=== PATIENT | female | born 1985 | race Caucasian/White ===

== ENCOUNTER → 2017-08-09 09:36 | Outpatient (CLI) | payer OTHER, SELFPAY ==
--- NOTE | 2017-08-09 09:45 | RAD_ITS ---
STUDY: AIR-CONTRAST UPPER CHEST SERIES AND SMALL BOWEL FOLLOW-THROUGH EXAMINATION. REASON FOR EXAM: Female, 31 years old. Post prandial abdominal pain. History of prior H. pylori. FLUOROSCOPY TIME (if supplied): (1:30) minutes/seconds TECHNIQUE: The patient ingested barium. Multiple images of the esophagus, stomach and duodenum were obtained. A small bowel follow-through examination was done performed. COMPARISON: None. FINDINGS: The esophagus is unremarkable. There is no evidence of esophageal obstruction. No mass lesion is seen. There is no evidence of gastroesophageal reflux. The stomach and duodenum are unremarkable. There is no evidence of ulceration. No mass lesion is seen. A small bowel examination was obtained. There is no evidence of intrinsic or extrinsic small bowel disease. The terminal ileum is unremarkable. RAD/Upper GI/w Small Bowel IMPRESSION: Unremarkable air contrast upper GI series and small bowel follow-through examination. Electronically Signed: Jozef Driver MD at 14:46 EST Tel [phone], Service support ,
== END ==
PROVIDERS: Family Provider Student in an Organized Health Care Education/Training Program; PCP Student in an Organized Health Care Education/Training Program; Visit Provider Student in an Organized Health Care Education/Training Program
DX: A04.8 Other specified bacterial intestinal infections (principal); F50.9 Eating disorder, unspecified; R10.13 Epigastric pain; R10.31 Right lower quadrant pain
CPT/HCPCS: 74249

== ENCOUNTER → 2017-09-18 10:40 | Outpatient (CLI) | payer OTHER, SELFPAY ==
[2017-09-18 12:50] LABS: CRP < 2.90 mg/L (0.0-3.0)
[2017-09-19 16:09] LABS: Endomysial Antibody IgA Negative (Negative)
[2017-09-20 11:28] LABS: Immunoglobulin A 176 mg/dL (87-352); t-Transglutaminase IgA <2 U/mL (0-3)
== END ==
PROVIDERS: Family Provider Student in an Organized Health Care Education/Training Program; PCP Student in an Organized Health Care Education/Training Program; Visit Provider Internal Medicine Gastroenterology
DX: R10.9 Unspecified abdominal pain (principal)
CPT/HCPCS: 36415; 82784; 83516; 86140; 86255

== ENCOUNTER → 2018-06-25 10:26 | Outpatient (CLI) | payer OTHER, SELFPAY ==
--- NOTE | 2018-06-25 10:29 | NM_ITS ---
CLINICAL: 32-year-old female with reported history of abdominal pain and bloating, nausea. SEMI-SOLID PHASE 99m Tc SULFUR COLLOID GASTRIC EMPTYING STUDY COMPARISON: None available FINDINGS: The patient was administered 1.1 mCi of 99m Tc sulfur colloid mixed with oatmeal and consumed per os. Image acquisitions were obtained in the anterior-posterior projections for a total of 60 minutes. There is prompt visualization of the stomach. There is no gastroesophageal reflux identified. The T1/2 linear fit was calculated to be 47.88 minutes, (Normal: 12-56 minutes). NM/Gastric Emptying Study IMPRESSION: 1. NORMAL 99m Tc sulfur colloid semi-solid phase (oatmeal) gastric emptying imaging examination. A. There is normal and preserved semi-solid phase gastric emptying compared to normal controls. (Mary et al, J Nucl Med Tech 38: 186, 2010). Electronically Signed: Diego Shepherd DO at 10:05 EST Tel , Service support ,
--- OUTSIDE RECORDS SUMMARY | 2018-08-30 05:06 | XMS RPT_ITS ---
:1985 Author Organization OHIP Care Team Providers Name Role Phone BEN URBINA Admitting Unavailable BEN URBINA Attending Unavailable BEN URBINA Referring Unavailable MANZANO, PELON Gee Referring Unavailable DIEGO WAITE Attending Unavailable MANZANO, PELON L Referring Unavailable MANZANO, PELON Gee Attending Unavailable MANZANO, PELON L Referring Unavailable MANZANO, PELON L Referring Unavailable MANZANO, PELON L Referring Unavailable ELLA RICO (ONION TIER) Referring Unavailable MANZANO, PELON L Attending Unavailable MANZANO, PELON L Referring Unavailable BEN URBINA Attending Unavailable Manzano, Pelon Attending Unavailable Manzano, Pelon Referring Unavailable Manzano, Pelon Primary Care Unavailable Manzano, Pelon Attending Unavailable Manzano, Pelon Primary Care Unavailable Mp Westbrook Attending Unavailable Manzano, Pelon Primary Care Unavailable PROBLEMS PROBLEMS DATE TYPE CONDITION / CODE ATTENDING STATUS SOURCE 06/18/2018 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 intolerance, [place] unspecified / Repository E73.9(ICD-10) 10/24/2017 Active Other fecal NA Active [facility] abnormalities / [place] R19.5(ICD-10) Repository 08/29/2017 Unknown A04.8 - Other Manzano, Active Bharati specified bacterial [facility] infections / Repository A04.8(ICD-10) 06/21/2017 Active Epigastric pain / NA Active [facility] R10.13(ICD-10) [place] Repository 06/21/2017 Active Other specified NA Active [facility] bacterial [place] intestinal Repository infections / A04.8(ICD-10) 08/02/2017 Active Right lower NA Active [facility] quadrant pain / [place] R10.31(ICD-10) Repository 08/02/2017 Active Nausea / NA Active [facility] R11.0(ICD-10) [place] Repository 08/02/2017 Active Eating disorder, NA Active [facility] unspecified / [place] F50.9(ICD-10) Repository 08/02/2017 Active Unknown / NA Active [facility] UNK(Unknown) [place] Repository 07/11/2017 Active Right upper NA Active [facility] quadrant pain / [place] R10.11(ICD-10) Repository PROCEDURES PROCEDURES No Procedure Records FoundRESULTS RESULTS PROGRESS Observed: 06/27/2018 Status: COMPLETED Source: [place] 10:10 AM [facility] HNO ID: [id number] Author: Ben Urbina Service: (none) Author Type: Physician Type: Progress Notes Filed: 06/27/2018 10:16 AM Note Text: CC: Over one year of dyspepsia, bloating and intermittent pain HPI: Nabil Ceron is a 32 year old female. The patient remembers that she became ill on May 26, 2017. Her initial illness was described as extreme nausea but occurred quite abruptly. Since that time the patient has been troubled by dyspepsia, bloating. Abdominal gurgling and occasional pain. She was discovered to have H. pylori which was treated but did not result in improvement in the long-term. She was tried on pantoprazole without much effect . She was tested for celiac disease and the markers were negative. She is not under any specific stresses at the moment. She has 2 small children. 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 The patient drinks one cup of coffee per day, does not smoke cigarettes and does not drink alcohol. Her weight is stable PAST MEDICAL HISTORY Diagnosis Date - NEGATIVE MEDICAL HISTORY PAST SURGICAL HISTORY Procedure Laterality Date - BUNIONECTOMY, LAPIDUS-TYPE 02/16/03 bilateral - COLONOSCOPY 10/01/2017 w biopsies, Dr. Westbrook; bx neg for microscopic colitis - EGD 07/08/2017 SOCIAL HX: Social History Substance Use Topics - Smoking status: Never Smoker - Smokeless tobacco: Never Used - Alcohol use No FAMILY HISTORY Problem Relation Age of Onset - Hypertension Maternal Grandmother - Hypertension Maternal Grandfather - Cancer Maternal Grandfather prostate,lung,laryngeal - Hypertension Paternal Grandfather - Cancer Maternal Aunt 66 kidney - Cancer Maternal Uncle prostate ALLERGIES: ALLERGIES No Known Allergies MEDICATIONS: OTC NUTRITIONAL SUPPLEMENT dicyclomine (BENTYL) 20 mg tablet Take 1 tablet by mouth three times daily before meals. pantoprazole DR (PROTONIX) 40 mg tablet Take 1 tablet by mouth twice daily. ROS: All systems reviewed and negative except as above noted. PHYSICAL EXAM: VITALS: BP 130/81 Pulse 50 Wt 130 lb 3.2 oz (59.1kg) LMP 06/02/2018 General Appearance: Well appearing, alert, in no acute distress, well-hydrated, well nourished.. Skin: Skin color, texture, turgor normal, no suspicious rashes or lesions. Lungs: Lungs clear to auscultation. No wheezing, rhonchi, rales. Heart: RRR without murmur, gallop, or rubs. No ectopy. Abdomen: Normal abdominal exam, Abdomen soft, non-tender. Bowel sounds normal. No masses, organomegaly. IMPRESSION: I think that this illness began as either of viral gastroenteritis or possibly food poisoning. I say this because of the abrupt onset and the fact that she can mention the exact date of May 26 as its starting point. I think that what happened is that her smooth muscle of her upper GI tract became hypersensitized and this is leading to her symptoms. The symptoms are caused by irregular forceful and frequent contractions of her upper GI tract. This situation is relatively common in my experience. Eventually a person symptoms usually subside but the period for her smooth muscle to return to normal and very variable. In rare cases it can take up to many years. I find that the best treatment for this is antispasmodics. PLAN: Dicyclomine 20 mg by mouth 3 times a day before meals If she feels better then after 3 months that would make attempts to taper the medicine and off. When that happens to results may occur- she may continue to fine or symptoms recurred in which case she needs to restart the medication. This note was partially generated using [employer] voice recognition system, and there may be some incorrect words, spellings, and punctuation that were not noted in checking the note before saving. Ben Urbina MD CNOV Observed: 06/27/2018 Status: COMPLETED Source: [place] 9:10 AM [facility] REPOSITORY Office Visit (GASTTW) NABIL CERON ([id number]) 1985 F Date Time Provider Department 06/27/18 9:10 AM BEN URBINA During your visit today, we recorded the following information about you: Pulse Blood pressure Weight 50/minute 130/81 59.1 kg Ben Urbina MD 06/27/2018 10:16 AM Signed CC: Over one year of dyspepsia, bloating and intermittent pain HPI: Nabil Ceron is a 32 year old female. The patient remembers that she became ill on May 26, 2017. Her initial illness was described as extreme nausea but occurred quite abruptly. Since that time the patient has been troubled by dyspepsia, bloating. Abdominal gurgling and occasional pain. She was discovered to have H. pylori which was treated but did not result in improvement in the long-term. She was tried on pantoprazole without much effect . She was tested for celiac disease and the markers were negative. She is not under any specific stresses at the moment. She has 2 small children. 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 The patient drinks one cup of coffee per day, does not smoke cigarettes and does not drink alcohol. Her weight is stable PAST MEDICAL HISTORY Diagnosis Date - NEGATIVE MEDICAL HISTORY PAST SURGICAL HISTORY Procedure Laterality Date - BUNIONECTOMY, LAPIDUS-TYPE 02/16/03 bilateral - COLONOSCOPY 10/01/2017 w biopsies, Dr. Westbrook; bx neg for microscopic colitis - EGD 07/08/2017 SOCIAL HX: Social History Substance Use Topics - Smoking status: Never Smoker - Smokeless tobacco: Never Used - Alcohol use No FAMILY HISTORY Problem Relation Age of Onset - Hypertension Maternal Grandmother - Hypertension Maternal Grandfather - Cancer Maternal Grandfather prostate,lung,laryngeal - Hypertension Paternal Grandfather - Cancer Maternal Aunt 66 kidney - Cancer Maternal Uncle prostate ALLERGIES: ALLERGIES No Known Allergies MEDICATIONS: OTC NUTRITIONAL SUPPLEMENT dicyclomine (BENTYL) 20 mg tablet Take 1 tablet by mouth three times daily before meals. pantoprazole DR (PROTONIX) 40 mg tablet Take 1 tablet by mouth twice daily. ROS: All systems reviewed and negative except as above noted. PHYSICAL EXAM: VITALS: BP 130/81 Pulse 50 Wt 130 lb 3.2 oz (59.1kg) LMP 06/02/2018 General Appearance: Well appearing, alert, in no acute distress, well-hydrated, well nourished.. Skin: Skin color, texture, turgor normal, no suspicious rashes or lesions. Lungs: Lungs clear to auscultation. No wheezing, rhonchi, rales. Heart: RRR without murmur, gallop, or rubs. No ectopy. Abdomen: Normal abdominal exam, Abdomen soft, non-tender. Bowel sounds normal. No masses, organomegaly. IMPRESSION: I think that this illness began as either of viral gastroenteritis or possibly food poisoning. I say this because of the abrupt onset and the fact that she can mention the exact date of May 26 as its starting point. I think that what happened is that her smooth muscle of her upper GI tract became hypersensitized and this is leading to her symptoms. The symptoms are caused by irregular forceful and frequent contractions of her upper GI tract. This situation is relatively common in my experience. Eventually a person symptoms usually subside but the period for her smooth muscle to return to normal and very variable. In rare cases it can take up to many years. I find that the best treatment for this is antispasmodics. PLAN: Dicyclomine 20 mg by mouth 3 times a day before meals If she feels better then after 3 months that would make attempts to taper the medicine and off. When that happens to results may occur- she may continue to fine or symptoms recurred in which case she needs to restart the medication. This note was partially generated using [employer] voice recognition system, and there may be some incorrect words, spellings, and punctuation that were not noted in checking the note before saving. Ben Urbina MD Referring Provider: SELF [200] Allergies As of Date: 06/27/2018 (No Known Allergies) Date Reviewed: 06/27/2018 Reviewed by: Fam Salmon - Fully Assessed Reason for Visit: Consult [502] Cmt: bloating Abdominal Pain [1] Cmt: loose stool Primary Visit Diagnosis:Pylorospasm [K31.3] Order(s):dicyclomine (BENTYL) 20 mg tabletTake 1 tablet by mouth three times daily before meals.Disp: 90 tabletRfl: 3 Prescriptions as of 06/27/2018 Sig: OTC NUTRITIONAL SUPPLEMENT DICYCLOMINE 20 MG TABLET Take 1 tablet by mouth three * PANTOPRAZOLE 40 MG TABLET,DEL* Take 1 tablet by mouth twice * Medication notes this encounter OTC NUTRITIONAL SUPPLEMENT >> FAM SALMON MA 06/27/2018 9:20 AM >> FAM SALMON Jun 27, 2018 9:20 AM motilprol Problem List As Of Date 06/27/2018 Noted Resolved Pain in joint, shoulder region [M25.519] INVALID FOR*01/28/2017 More... Knee pain [M25.569] INVALID FOR*01/28/2017 More... Hip flexor tendinitis [M76.899] INVALID FOR* H. pylori infection [A04.8] INVALID FOR* Epigastric pain [R10.13] INVALID FOR* Thyromegaly [E01.0] INVALID FOR* Abdominal distension [R14.0] INVALID FOR* Bloating [R14.0] INVALID FOR* Generalized abdominal pain [R10.84] INVALID FOR* Nausea [R11.0] INVALID FOR* Early satiety [R68.81] INVALID FOR* Routine physical examination [Z00.00] INVALID FOR* Belching [R14.2] INVALID FOR* Prescriptions ordered this encounter Disp Refills Start End DICYCLOMINE 20 MG TABLET 90 t* 3 06/27/2018 Route: ORAL Sig: Take 1 tablet by mouth three times daily before meals. Encounter Status:Closed by BEN URBINA MD on 06/27/18 GASTRIC EMPTYING Observed: 06/25/2018 Status: F Source: [place] [facility] 10:30 AM [facility] REPOSITORY [facility] Imaging Services [address] [place] [address] Gastric Emptying Study MR#: [id number] Acct: [id number] Name: NABIL CERON Rep #: [id number] : 1985 F 32 From: Diego Shepherd DO PCP: Pelon Hernandez DO Status: REG CLI Study: Gastric Emptying Study Date of Exam: 06/25/18 Exam# [id number] Ordering Dr: Pelon Manzano DO CLINICAL: 32-year-old female with reported history of abdominal pain and bloating, nausea. SEMI-SOLID PHASE 99m Tc SULFUR COLLOID GASTRIC EMPTYING STUDY COMPARISON: None available FINDINGS: The patient was administered 1.1 mCi of 99m Tc sulfur colloid mixed with oatmeal and consumed per os. Image acquisitions were obtained in the anterior-posterior projections for a total of 60 minutes. There is prompt visualization of the stomach. There is no gastroesophageal reflux identified. The T1/2 linear fit was calculated to be 47.88 minutes, (Normal: 12-56 minutes). NM/Gastric Emptying Study IMPRESSION: 1. NORMAL 99m Tc sulfur colloid semi-solid phase (oatmeal) gastric emptying imaging examination. A. There is normal and preserved semi-solid phase gastric emptying compared to normal controls. (Mary et al, J Nucl Med Tech 38: 186, 2010). 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 Goins, Ron Denis, Dawit EK, et al. Management of Thyroid Dysfunction during and : An Endocrine Society Clinical Practice Guideline. J Clin Endocrinol Metab, 2012:97:0239-0376. 2. Lamonte DAVIS. Overview of thyroid disease in . UpToDate. 2016. Accessed on November 25, 2015. Performed By: #### TSH, FREET3, FT4, MICRO #### [facility] [employer] [address] [address] FREE T3 Collected: 06/18/2018 Status: F Source: [place] 11:58 AM [facility] REPOSITORY TYPE CODE TESTS RESULT OUT OF RANGE REFERENCE UNITS LAB FREET3 2.3-4.1 pg/mL Free T3 2.7 Performed By: #### TSH, FREET3, FT4, MICRO #### [facility] [employer] [address] [address] FREE T4 Collected: 06/18/2018 Status: F Source: [place] 11:58 AM [facility] REPOSITORY TYPE CODE TESTS RESULT OUT OF RANGE REFERENCE UNITS LAB FT4 0.9-1.7 ng/dL Free T4 1.2 Performed By: #### TSH, FREET3, FT4, MICRO #### [facility] [email or web address] [address] [address] TPO ANTIBODY Collected: 06/18/2018 Status: F Source: [place] 11:58 AM [facility] REPOSITORY TYPE CODE TESTS RESULT OUT OF REFERENCE UNITS RANGE LAB MICRO <5.6 IU/mL TPO Antibody <1.0 Performed By: #### TSH, FREET3, FT4, MICRO #### [facility] [email or web address] [address] [address] PROGRESS Observed: 06/18/2018 Status: COMPLETED Source: [place] 11:47 AM [facility] REPOSITORY HNO ID: [id number] Author: Pelon Manzano Service: (none) Author Type: Physician Type: Progress Notes Filed: 06/18/2018 11:54 AM Note Text: CC: Nabil Ceron is a 32 year old female who presents to the office for physical HPI: When last seen in office 07/2017, she had the following The patient ?notes the following upper complaints: ? abdominal pain. ???The pain occurs in the following locations: ?epigastric region, RUQ and RLQ, The patient describes the pain as a occasionally severe, but is improving over the past few weeks. The pain has the following character: Colicky . ? occasional heartburn. ??denies dysphagia. ? denies a history of ulcers/ peptic ulcer disease. ? ? She underwent a gallbladder ultrasound which demonstrated some sludge but no other specific abnormalities. ?She had a blood test which demonstrated an H pylori infection due to H. pylori antibody and IgG antigen. ? symptoms generally occur in, around or later after eating food. ?Food does not improve her symptoms. ?She noted some improvement in her symptoms?when started on proton pump inhibitor and antibiotic eradication but not complete resolution of her symptoms. ?Her symptoms recurred when she stopped taking proton pump inhibitors. ?After she completed her antibiotic course ? She underwent a HIDA?scan with ejection fraction. ?This demonstrated a normal ejection fraction did not reproduce her symptoms. ? Dr Urbina?performed upper?endoscopy on July 08, 2017. ?The patient was found to have erythematous gastritis. ? ? Has had some constipation symptoms slightly, still having daily bowel movement but more difficulty despite high fiber, high water intake. Currently She still continues to have the same symptoms as above, decreased appetite, bloating, belching, acid reflux symptoms, difficulty with processing solid foods I feel like they just don't digest and sit in my stomach area. Intermittent loose stools, occasional constipation, no blood in stool. Has made multiple attempts at diet changes and restricting dairy or gluten individually for weeks without any changes. Is now mostly just drinking smoothies with nutrients such as spinach and protein powder and lactose free milk products. Has an appt to see Edge Trimmer Mechanic in mid June for opinion. Skin lesion left upper back area, irritated, was itching, caused her to accidentally scratch it ? PAST MEDICAL HISTORY Diagnosis Date - NEGATIVE MEDICAL HISTORY PAST SURGICAL HISTORY Procedure Laterality Date - BUNIONECTOMY, LAPIDUS-TYPE 02/16/03 bilateral - COLONOSCOPY 10/01/2017 w biopsies, Dr. Westbrook; bx neg for microscopic colitis - EGD 07/08/2017 Social History: Social History Substance Use Topics - Smoking status: Never Smoker - Smokeless tobacco: Never Used - Alcohol use No FAMILY HISTORY Problem Relation Age of Onset - Hypertension Maternal Grandmother - Hypertension Maternal Grandfather - Cancer Maternal Grandfather prostate,lung,laryngeal - Hypertension Paternal Grandfather - Cancer Maternal Aunt 66 kidney - Cancer Maternal Uncle prostate Current Outpatient prescriptions: pantoprazole DR (PROTONIX) 40 mg tablet Take 1 tablet by mouth twice daily. Allergies: ALLERGIES No Known Allergies ROS: See HPI PE: 06/18/18 1008 BP: 110/80 Pulse: 64 Temp: (!) 35.6 ?C (96.1 ?F) TempSrc: Left Tympanic Weight: 59.9 kg (132 lb) Height: 172.7 cm (5' 8) Gen: AANDO, NAD, non-toxic appearing, Pleasant, cooperative HEENT: NT/AC, PERRLA, EOMs intact b/l, nares clear and patent b/l, pharynx without erythema, exudate or lesions. Uvula midline. EACs without erythema or debris. TMs pearly santana with intact landmarks b/l. Neck: supple, No cervical LAD, mild symmetric non tender thyromegaly, no carotid bruits CV: RRR, normal S1 and S2, no murmurs, no gallops, no rubs, Pulses 2+ and symmetric in UE and LE b/l Lungs: normal respiratory effort, CTA b/l, no wheezing or rhonchi or rales Abd: soft, mild distension, normal bowel sounds with normal pitch, thin, no masses, mild generalized TTP, +BS, no hepatosplenomegaly MS: FROM all 4 extremities Neuro: CN II-XII intact b/l, strength 5/5 b/l UE and LE, DTRs 2/4 UE and LE, sensation intact. Skin: warm, dry, iflammed skin tag appearing lesion on left upper scapula ASSESSMENT/PLAN: 1. Routine physical examination - ICD9: V70.0, ICD10: Z00.00 (primary diagnosis) - Encouraged monthly Breast Self Exam - Recommended calcium intake with supplements or by diet (goal of 9650-0062 mg/day - Follow up for annual exam in one year. 2. Early satiety - ICD9: 780.94, ICD10: R68.81 - unsure of cause, has had overall normal EGD, colonoscopy and barium upper small bowel series and xrays and HIDA scan and RUQ US, Is set up to see GI in 1-2 weeks, testing as ordered prior to this appt if able - CAPSULE ENDOSCOPY SMALL BOWEL - NM GASTRIC EMPTYING SOLID 3. Nausea - ICD9: 787.02, ICD10: R11.0 - unsure of cause, has had overall normal EGD, colonoscopy and barium upper small bowel series and xrays and HIDA scan and RUQ US, Is set up to see GI in 1-2 weeks, testing as ordered prior to this appt if able - CAPSULE ENDOSCOPY SMALL BOWEL - NM GASTRIC EMPTYING SOLID 4. Generalized abdominal pain - ICD9: 789.07, ICD10: R10.84 - unsure of cause, has had overall normal EGD, colonoscopy and barium upper small bowel series and xrays and HIDA scan and RUQ US, Is set up to see GI in 1-2 weeks, testing as ordered prior to this appt if able - CAPSULE ENDOSCOPY SMALL BOWEL - NM GASTRIC EMPTYING SOLID 5. Bloating - ICD9: 787.3, ICD10: R14.0 - unsure of cause, has had overall normal EGD, colonoscopy and barium upper small bowel series and xrays and HIDA scan and RUQ US, Is set up to see GI in 1-2 weeks, testing as ordered prior to this appt if able - CAPSULE ENDOSCOPY SMALL BOWEL - NM GASTRIC EMPTYING SOLID 6. Abdominal distension - ICD9: 787.3, ICD10: R14.0 - unsure of cause, has had overall normal EGD, colonoscopy and barium upper small bowel series and xrays and HIDA scan and RUQ US, Is set up to see GI in 1-2 weeks, testing as ordered prior to this appt if able - CAPSULE ENDOSCOPY SMALL BOWEL - NM GASTRIC EMPTYING SOLID 7. Thyromegaly - ICD9: 240.9, ICD10: E01.0 - labs as ordered today for start - TSH BLD - T4 FREE/FREE THYROX - T3 FREE BLD - THYROID PEROXIDASE ANTIBODY BLOOD 8. Belching - ICD9: 787.3, ICD10: R14.2 - unsure of cause, has had overall normal EGD, colonoscopy and barium upper small bowel series and xrays and HIDA scan and RUQ US, Is set up to see GI in 1-2 weeks, testing as ordered prior to this appt if able Pelon Manzano, DO To ER if develops chest pain, shortness of breath, or severe worsening of symptoms. Discussed risks, benefits, alternatives, and potential side effects of medications. Patient expressed understanding and agreed with the plan. Pelon Manzano, DO [address] [place] [address] KATHY Observed: 06/18/2018 Status: COMPLETED Source: [place] 10:00 AM [facility] REPOSITORY Office Visit (FAMPWS) NABIL CERON ([id number]) 1985 F Date Time Provider Department 06/18/18 10:00 AM PELON MANZANO [facility] During your visit today, we recorded the following information about you: Temperature Pulse Blood pressure Weight 96.1 degrees 64/minute 110/80 59.9 kg Height Last Period 1.727 m 06/02/18 Pelon Manzano, 06/18/2018 10:[address] Nixon- Food allergy testing He is in [facility] [phone], ask for radiology to schedule the NM solid emptying solid and capsule endoscopy study My fax [phone] Pelon Manzano, DO 06/18/2018 11:54 AM Signed CC: Nabil Ceron is a 32 year old female who presents to the office for physical HPI: When last seen in office 07/2017, she had the following The patient ?notes the following upper complaints: ? abdominal pain. ???The pain occurs in the following locations: ?epigastric region, RUQ and RLQ, The patient describes the pain as a occasionally severe, but is improving over the past few weeks. The pain has the following character: Colicky . ? occasional heartburn. ??denies dysphagia. ? denies a history of ulcers/ peptic ulcer disease. ? ? She underwent a gallbladder ultrasound which demonstrated some sludge but no other specific abnormalities. ?She had a blood test which demonstrated an H pylori infection due to H. pylori antibody and IgG antigen. ? symptoms generally occur in, around or later after eating food. ?Food does not improve her symptoms. ?She noted some improvement in her symptoms?when started on proton pump inhibitor and antibiotic eradication but not complete resolution of her symptoms. ?Her symptoms recurred when she stopped taking proton pump inhibitors. ?After she completed her antibiotic course ? She underwent a HIDA?scan with ejection fraction. ?This demonstrated a normal ejection fraction did not reproduce her symptoms. ? Dr Urbina?performed upper?endoscopy on July 08, 2017. ?The patient was found to have erythematous gastritis. ? ? Has had some constipation symptoms slightly, still having daily bowel movement but more difficulty despite high fiber, high water intake. Currently She still continues to have the same symptoms as above, decreased appetite, bloating, belching, acid reflux symptoms, difficulty with processing solid foods I feel like they just don't digest and sit in my stomach area. Intermittent loose stools, occasional constipation, no blood in stool. Has made multiple attempts at diet changes and restricting dairy or gluten individually for weeks without any changes. Is now mostly just drinking smoothies with nutrients such as spinach and protein powder and lactose free milk products. Has an appt to see Edge Trimmer Mechanic in mid June for opinion. Skin lesion left upper back area, irritated, was itching, caused her to accidentally scratch it ? PAST MEDICAL HISTORY Diagnosis Date - NEGATIVE MEDICAL HISTORY PAST SURGICAL HISTORY Procedure Laterality Date - BUNIONECTOMY, LAPIDUS-TYPE 02/16/03 bilateral - COLONOSCOPY 10/01/2017 w biopsies, Dr. Westbrook; bx neg for microscopic colitis - EGD 07/08/2017 Social History: Social History Substance Use Topics - Smoking status: Never Smoker - Smokeless tobacco: Never Used - Alcohol use No FAMILY HISTORY Problem Relation Age of Onset - Hypertension Maternal Grandmother - Hypertension Maternal Grandfather - Cancer Maternal Grandfather prostate,lung,laryngeal - Hypertension Paternal Grandfather - Cancer Maternal Aunt 66 kidney - Cancer Maternal Uncle prostate Current Outpatient prescriptions: pantoprazole DR (PROTONIX) 40 mg tablet Take 1 tablet by mouth twice daily. Allergies: ALLERGIES No Known Allergies ROS: See HPI PE: 06/18/18 1008 BP: 110/80 Pulse: 64 Temp: (!) 35.6 ?C (96.1 ?F) TempSrc: Left Tympanic Weight: 59.9 kg (132 lb) Height: 172.7 cm (5' 8) Gen: AANDO, NAD, non-toxic appearing, Pleasant, cooperative HEENT: NT/AC, PERRLA, EOMs intact b/l, nares clear and patent b/l, pharynx without erythema, exudate or lesions. Uvula midline. EACs without erythema or debris. TMs pearly santana with intact landmarks b/l. Neck: supple, No cervical LAD, mild symmetric non tender thyromegaly, no carotid bruits CV: RRR, normal S1 and S2, no murmurs, no gallops, no rubs, Pulses 2+ and symmetric in UE and LE b/l Lungs: normal respiratory effort, CTA b/l, no wheezing or rhonchi or rales Abd: soft, mild distension, normal bowel sounds with normal pitch, thin, no masses, mild generalized TTP, +BS, no hepatosplenomegaly MS: FROM all 4 extremities Neuro: CN II-XII intact b/l, strength 5/5 b/l UE and LE, DTRs 2/4 UE and LE, sensation intact. Skin: warm, dry, iflammed skin tag appearing lesion on left upper scapula ASSESSMENT/PLAN: 1. Routine physical examination - ICD9: V70.0, ICD10: Z00.00 (primary diagnosis) - Encouraged monthly Breast Self Exam - Recommended calcium intake with supplements or by diet (goal of 9965-3791 mg/day - Follow up for annual exam in one year. 2. Early satiety - ICD9: 780.94, ICD10: R68.81 - unsure of cause, has had overall normal EGD, colonoscopy and barium upper small bowel series and xrays and HIDA scan and RUQ US, Is set up to see GI in 1-2 weeks, testing as ordered prior to this appt if able - CAPSULE ENDOSCOPY SMALL BOWEL - NM GASTRIC EMPTYING SOLID 3. Nausea - ICD9: 787.02, ICD10: R11.0 - unsure of cause, has had overall normal EGD, colonoscopy and barium upper small bowel series and xrays and HIDA scan and RUQ US, Is set up to see GI in 1-2 weeks, testing as ordered prior to this appt if able - CAPSULE ENDOSCOPY SMALL BOWEL - NM GASTRIC EMPTYING SOLID 4. Generalized abdominal pain - ICD9: 789.07, ICD10: R10.84 - unsure of cause, has had overall normal EGD, colonoscopy and barium upper small bowel series and xrays and HIDA scan and RUQ US, Is set up to see GI in 1-2 weeks, testing as ordered prior to this appt if able - CAPSULE ENDOSCOPY SMALL BOWEL - NM GASTRIC EMPTYING SOLID 5. Bloating - ICD9: 787.3, ICD10: R14.0 - unsure of cause, has had overall normal EGD, colonoscopy and barium upper small bowel series and xrays and HIDA scan and RUQ US, Is set up to see GI in 1-2 weeks, testing as ordered prior to this appt if able - CAPSULE ENDOSCOPY SMALL BOWEL - NM GASTRIC EMPTYING SOLID 6. Abdominal distension - ICD9: 787.3, ICD10: R14.0 - unsure of cause, has had overall normal EGD, colonoscopy and barium upper small bowel series and xrays and HIDA scan and RUQ US, Is set up to see GI in 1-2 weeks, testing as ordered prior to this appt if able - CAPSULE ENDOSCOPY SMALL BOWEL - NM GASTRIC EMPTYING SOLID 7. Thyromegaly - ICD9: 240.9, ICD10: E01.0 - labs as ordered today for start - TSH BLD - T4 FREE/FREE THYROX - T3 FREE BLD - THYROID PEROXIDASE ANTIBODY BLOOD 8. Belching - ICD9: 787.3, ICD10: R14.2 - unsure of cause, has had overall normal EGD, colonoscopy and barium upper small bowel series and xrays and HIDA scan and RUQ US, Is set up to see GI in 1-2 weeks, testing as ordered prior to this appt if able Pelon Manzano DO To ER if develops chest pain, shortness of breath, or severe worsening of symptoms. Discussed risks, benefits, alternatives, and potential side effects of medications. Patient expressed understanding and agreed with the plan. Pelon Manzano DO [address] [place] [address] Allergies As of Date: 06/18/2018 (No Known Allergies) Date Reviewed: 06/18/2018 Reviewed by: Lizeth Lozada LPN - Fully Assessed Reason for Visit: Physical [83] Primary Visit Diagnosis:Routine physical examination [Z00.00] Other Visit Diagnoses:Early satiety [R68.81] Nausea [R11.0] Generalized abdominal pain [R10.84] Bloating [R14.0] Abdominal distension [R14.0] Thyromegaly [E01.0] Belching [R14.2] Order(s):CAPSULE ENDOSCOPY SMALL BOWEL [50891TYA] Order #: [id number] FUTURE NM GASTRIC EMPTYING SOLID [1905756] Order #: [id number] FUTURE TSH BLD [SQTSH] Order #: [id number] FUTURE T4 FREE/FREE THYROX [SQFT4] Order #: [id number] FUTURE T3 FREE BLD [SQFREET3] Order #: [id number] FUTURE THYROID PEROXIDASE ANTIBODY BLOOD [SQMICRO] Order #: [id number] FUTURE Prescriptions as of 06/18/2018 Sig: PANTOPRAZOLE 40 MG TABLET,DEL* Take 1 tablet by mouth twice * Problem List As Of Date 06/18/2018 Noted Resolved Pain in joint, shoulder region [M25.519] INVALID FOR*01/28/2017 More... Knee pain [M25.569] INVALID FOR*01/28/2017 More... Hip flexor tendinitis [M76.899] INVALID FOR* H. pylori infection [A04.8] INVALID FOR* Epigastric pain [R10.13] INVALID FOR* Thyromegaly [E01.0] INVALID FOR* Abdominal distension [R14.0] INVALID FOR* Bloating [R14.0] INVALID FOR* Generalized abdominal pain [R10.84] INVALID FOR* Nausea [R11.0] INVALID FOR* Early satiety [R68.81] INVALID FOR* Routine physical examination [Z00.00] INVALID FOR* Belching [R14.2] INVALID FOR* Other instructions from your clinician: Dr. Nixon- Food allergy testing He is in [facility] [phone], ask for radiology to schedule the NM solid emptying solid and capsule endoscopy study My fax [phone] Encounter Status:Closed by PELON MANZANO DO on 06/18/18 LACTOSE TOLERANCE Collected: 10/24/2017 Status: F Source: [place] 8:10 AM [facility] REPOS[facility]ORY TYPE CODE TESTS RESULT OUT OF REFERENCE UNITS RANGE LAB GLUL0 74-99 mg/dL Glucose, 81 Fasting LAB GLUL30 mg/dL Glucose, 30 100 min Result Comment: Normal response is increase in glucose >20 mg/dL above fasting value. LAB GLUL60 mg/dL Glucose, 60 min 70 Result Comment: Normal response is increase in glucose >20 mg/dL above fasting value. LAB GLUL90 mg/dL Glucose, 90 min 66 Result Comment: Normal response is increase in glucose >20 mg/dL above fasting value. LAB GLULH2 mg/dL Glucose, 120 min 78 Result Comment: Normal response is increase in glucose >20 mg/dL above fasting value. Performed By: #### LACTT #### [facility] [address] [place] [address] CNNURSE Observed: 10/24/2017 Status: COMPLETED Source: [place] 8:00 AM [facility] REPOSITORY Nurse Visit (GASTWC) NABIL CERON ([id number]) 1985 F Date Time Provider Department 10/24/17 8:00 AM NURSE [facility] During your visit today, we recorded the following information about you: Kalani Neal MA 10/24/2017 8:28 AM Signed Patient here for lactose test. Lactose drink (Lactose Monohydrate powder 50 grams in 400 ML in water) administered 8:15 am after the first blood draw. Lot#[id number], exp date-10/15/2018. Patient tolerated well. Referring Provider: ELLA RICO (ONION TIER) [[id number]] Allergies As of Date: 10/24/2017 (No Known Allergies) Date Reviewed: 08/02/2017 Reviewed by: Allison Weinstein Ct - Fully Assessed Reason for Visit: Lactose Tolerance [Other] Primary Visit Diagnosis:Helicobacter pylori infection [A04.8] Other Visit Diagnoses:Epigastric pain [R10.13] Right lower quadrant abdominal pain [R10.31] Nausea [R11.0] Appetite disorder [F50.9] Prescriptions as of 10/24/2017 Sig: PANTOPRAZOLE 40 MG TABLET,DEL* Take 1 tablet by mouth twice * Problem List As Of Date 10/24/2017 Noted Resolved Pain in joint, shoulder region [M25.519] INVALID FOR*01/28/2017 More... Knee pain [M25.569] INVALID FOR*01/28/2017 More... Hip flexor tendinitis [M76.899] INVALID FOR* H. pylori infection [A04.8] INVALID FOR* Epigastric pain [R10.13] INVALID FOR* Visit Notes: >> Kalani Neal MA [facility] October 24, 2017 8:19 AM Status: Signed Patient here for lactose test. Lactose drink (Lactose Monohydrate powder 50 grams in 400 ML in water) administered 8:15 am after the first blood draw. Lot#[id number], exp date-10/15/2018. Patient tolerated well. Encounter Status:Closed by KALANI NEAL MA on 10/24/17 Observed: 10/24/2017 Status: F Source: [place] STOOL CULTURE 6:57 AM [facility] REPOSITORY Campylobacter EIA - Test method has changed. Incorrect order replaced with order for new test. Account Credited Shiga Toxin - Test method has changed. Incorrect order replaced with order for new test. Account Credited Culture Result - Test method has changed. Incorrect order replaced with order for new test. Account Credited Performed By: #### STCUL #### [facility] [email or web address] [address] [place] [id number] ENTERIC BACT PNL PCR Collected: 10/24/2017 Status: F Source: [place] 6:57 AM [facility] REPOSITORY TYPE CODE TESTS RESULT OUT OF REFERENCE UNITS RANGE LAB PCRSHG Shigella/EIEC Not Detected DNA LAB PCRCMP Campy jejun/coli DNA Not Detected LAB PCRSTX Shiga toxin gene(s) Not Detected LAB PCRSAL Salmonella spp. Not Detected DNA Performed By: #### STLPCR #### [facility] [email or web address] [address] [place], [place] [address] Observed: 10/24/2017 Status: F Source: [place] OVA AND PARASITE EX 6:57 AM [facility] REPOSITORY Sp. Request/Comment: - Specimen received in Ova and Parasite Kit. Culture Result - No parasites seen. Performed By: #### OVAP #### [facility] [address] [place], [place] [address] CNPN Observed: 10/23/2017 Status: COMPLETED Source: [place] 12:00 AM [facility] REPOSITORY Telephone (FAMPWS) NABIL CERON ([id number]) 1985 F Date Time Provider Department 10/23/17 PELON MANZANO FAMPWS During your visit today, we recorded the following information about you: Angelina Tirado 10/23/2017 4:13 PM Signed Patient needs to be scheduled with Gastro nurse for a Lactose Intolerance test. Needs to be done tomorrow 10/24 or 10/25/17. Kalani Neal MA 10/24/2017 7:43 AM Signed Contacted patient and she is scheduled to have her Lactose Test done today. Kalani Neal MA Allergies As of Date: 10/23/2017 (No Known Allergies) Date Reviewed: 08/02/2017 Reviewed by: Allison Weinstein Ct - Fully Assessed Reason for Visit: Future Appointment [256] Cmt: lactose test needs scheduled Prescriptions as of 10/23/2017 Sig: PANTOPRAZOLE 40 MG TABLET,DEL* Take 1 tablet by mouth twice * Problem List As Of Date 10/23/2017 Noted Resolved Pain in joint, shoulder region [M25.519] INVALID FOR*01/28/2017 More... Knee pain [M25.569] INVALID FOR*01/28/2017 More... Hip flexor tendinitis [M76.899] INVALID FOR* H. pylori infection [A04.8] INVALID FOR* Epigastric pain [R10.13] INVALID FOR* Encounter Status:Closed by ANGELINA KEARNS on 10/23/17 CRP Collected: 09/18/2017 Status: F Source: [place] 10:44 AM [facility] REPOSITORY TYPE CODE TESTS RESULT OUT OF RANGE REFERENCE UNITS LAB L501.6710 0.0-3.0 mg/L Normal < 2.90 C-REACTIVE PROT Result Comment: C-Reactive Protein (CRP) provides useful information for the diagnosis, therapy and monitoring of inflammatory processes and associated diseases. For the evaluation of Relative Risk for Cardiovascular Disease, a High Sensitivity CRP (HSCRP) should be ordered. Performed By: #### L501.6710 #### [facility] [place] [facility] [address] [place], [place], [id number] CELIAC DISEASE Collected: 09/18/2017 Status: F Source: [place] PROFILE 10:44 AM [facility] REPOSITORY TYPE CODE TESTS RESULT OUT OF RANGE REFERENCE UNITS LAB L3200.1400 87-352 mg/dL Normal IMMUNO A 176 Result Comment: Performed at: [facility] [id number] Hand Outside Cutter: Mp Zambrano PhD, Phone: [phone] LAB L3032.8613 0-3 U/mL Normal tTG IGA <2 Result Comment: Negative 0 - 3 Weak Positive 4 - 10 Positive >10 Tissue Transglutaminase (tTG) has been identified as the endomysial antigen. Studies have demonstr- ated that endomysial IgA antibodies have over 99% specificity for gluten sensitive enteropathy. LAB L3410.0540 Negative Normal ENDOMYSIAL IGA Negative Performed By: #### L3410.2400 #### [facility] (refer to report for specific site) refer to report for address and phone number UPPER GI/W SMALL Observed: 08/09/2017 Status: F Source: [place] BOWEL 9:38 AM [facility] REPOSITORY [facility] [address] [place] [address] Upper GI/w Small Bowel MR#: [id number] Acct: [id number] Name: NABIL CERON Rep #: [id number] : 1985 F 31 From: Jozef Driver MD PCP: Pelon Manzano DO Status: REG CLI Study: Upper GI/w Small Bowel Date of Exam: 08/09/17 Exam# [id number] Ordering Dr: Pelon Manzano DO STUDY: AIR-CONTRAST UPPER CHEST SERIES AND SMALL BOWEL FOLLOW-THROUGH EXAMINATION. REASON FOR EXAM: Female, 31 years old. Post prandial abdominal pain. History of prior H. pylori. FLUOROSCOPY TIME (if supplied): (1:30) minutes/seconds TECHNIQUE: The patient ingested barium. Multiple images of the esophagus, stomach and duodenum were obtained. A small bowel follow-through examination was done performed. COMPARISON: None. FINDINGS: The esophagus is unremarkable. There is no evidence of esophageal obstruction. No mass lesion is seen. There is no evidence of gastroesophageal reflux. The stomach and duodenum are unremarkable. There is no evidence of ulceration. No mass lesion is seen. A small bowel examination was obtained. There is no evidence of intrinsic or extrinsic small bowel disease. The terminal ileum is unremarkable. RAD/Upper GI/w Small Bowel IMPRESSION: Unremarkable air contrast upper GI series and small bowel follow-through examination. Electronically Signed: Jozef Driver MD at 14:46 EST Tel [phone], Service support , CC: Pelon Manzano DO Chamfering Machine Operator: Signed PROGRESS Observed: 08/02/2017 Status: COMPLETED Source: [place] 3:48 PM [facility] REPOSITORY O ID: [id number] Author: Allison Weinstein De Service: (none) Author Type: (none) Type: Progress Notes Filed: 08/02/2017 3:49 PM Note Text: Radiology Service Progress Note PATIENT NAME: Nabil Ceron DATE OF SERVICE: August 02, 2017 TIME: 3:48 PM PATIENT IDENTITY VERIFICATION COMPLETED USING TWO (2) METHODS: Patient confirmed name verbally and Date of . PATIENT GENDER DATA: Female. status: : No status: NO. PATIENT RELEVANT IMPLANT DATA REVIEWED: Not Applicable CONTRAST INDUCED NEPHROPATHY RISK FACTORS: Not applicable CREATININE: No results found for: CREAT, EGFROTH, EGFRAA P.O.C.T. RESULTS: N/A August 02, 2017 RADIOLOGIST NOTIFIED?: No ALLERGIES: Reviewed and unchanged CONTRAST ALLERGY: NO. PERIPHERAL IV ACCESS: Ambulatory: IV type: A peripheral IV was started in the Left antecubital site with a Angio cath: 22 gauge., Site assessment: Clean,Dry and Intact, Site disposition Discontinued RADIOLOGY DEPARTMENT: CT; Exam(s) Completed: Abdomen/Pelvis SIGNED BY: Allison Weinstein Ct August 02, 2017 3:[address] ABD/PEL W IVCON Observed: 08/02/2017 Status: F Source: [place] 3:40 PM [facility] REPOSITORY * * *Final Report* * * DATE OF EXAM: Aug 02 2017 3:40PM [facility] 0530 - CT ABD/PEL W IVCON / PROCEDURE REASON: multiple diagnoses * * * * Physician Interpretation * * * * EXAMINATION: CT ABDOMEN AND PELVIS WITH IV CONTRAST CLINICAL HISTORY: Right upper quadrant pain TECHNIQUE: CT of the abdomen and pelvis was performed using standard technique, scanning from just above the dome of the diaphragm to the symphysis pubis. MQ: CTAP_3 Contrast: IV: 119 ml of Omnipaque 300 Oral: 50 ml of 50ML Omnipaque [address] Radiation dose: Integrated Dose-length product (DLP) for this visit = 268 mGy*cm. CT Dose Reduction Employed: Automated exposure control (AEC) COMPARISON: Ultrasound 06/13/2017 RESULT: Liver: Posterior RIGHT hepatic lobe 1 cm density with peripheral nodular enhancement. This corresponds to the sonographic finding. Parenchymal decreased attenuation Biliary: No bile duct dilation. Gallbladder is unremarkable. Spleen: No mass. No splenomegaly. Pancreas: No mass or duct dilation. Adrenals: No mass. Kidneys: Focal scarring posterior lower pole RIGHT kidney. GI tract: No dilation or wall thickening. Limited views of the appendix are unremarkable. Lymph nodes: No abdominal or pelvic lymphadenopathy. Mesentery/Peritoneum: No ascites or mass. Retroperitoneum: No mass. Vasculature: The celiac axis and SMA are patent. The portal vein and branches, splenic vein, SMV, and hepatic veins are patent. No abdominal aortic aneurysm. Pelvis: No mass, ascites or fluid collection. Bones/Soft Tissues: Unremarkable Lower thorax: Unremarkable. IMPRESSION: Right hepatic lobe hemangioma. Hepatic steatosis. Focal scarring RIGHT kidney. Chamfering Machine Operator: PSCB Transcribe Date/Time: Aug 02 2017 3:45P Dictated by : BAKARI SHER MD This examination was interpreted and the report reviewed and electronically signed by: BAKARI SHER MD on Aug 02 2017 3:54PM EST [id number] Observed: 07/31/2017 Status: COMPLETED Source: [place] 2:59 PM [facility] REPOSITORY HNO ID: [id number] Author: Pelon Manzano Service: (none) Author Type: Physician Type: Progress Notes Filed: 07/31/2017 3:13 PM Note Text: CC: Nabil Ceron is a 31 year old female who presents to the office for follow up abdominal pain HPI: The patient notes the following upper complaints: abdominal pain. The pain occurs in the following locations: epigastric region, RUQ and RLQ, The patient describes the pain as a occasionally severe, but is improving over the past few weeks. The pain has the following character: Colicky . occasional heartburn. denies dysphagia. denies a history of ulcers/ peptic ulcer disease. ? She underwent a gallbladder ultrasound which demonstrated some sludge but no other specific abnormalities. She had a blood test which demonstrated an H pylori infection due to H. pylori antibody and IgG antigen. ? symptoms generally occur in, around or later after eating food. Food does not improve her symptoms. She noted some improvement in her symptoms when started on proton pump inhibitor and antibiotic eradication but not complete resolution of her symptoms. Her symptoms recurred when she stopped taking proton pump inhibitors. After she completed her antibiotic course ? She underwent a HIDA scan with ejection fraction. This demonstrated a normal ejection fraction did not reproduce her symptoms. ? Dr Urbina performed upper endoscopy on July 08, 2017. The patient was found to have erythematous gastritis. ? Has had some constipation symptoms slightly, still having daily bowel movement but more difficulty despite high fiber, high water intake. PAST MEDICAL HISTORY Diagnosis Date - NEGATIVE MEDICAL HISTORY PAST SURGICAL HISTORY Procedure Laterality Date - BUNIONECTOMY, LAPIDUS-TYPE 02/16/03 bilateral - EGD 07/08/2017 Current Outpatient Prescriptions: pantoprazole DR (PROTONIX) 40 mg tablet Take 1 tablet by mouth twice daily. iv contrast (radiology procedure) CT Chest ABD/PEL-Inject, intravenously, once for 1 dose.No IV access, insert saline lock prior to the beginning of sedation, infusion, injection of imaging exam. Discontinue saline lock post exam. If Pt. has a central line or IVAD, may access for administration according to line specific nursing protocol. Once exam is complete flush line and de-access according to line specific nursing protocol in the CT contrast administration guidelines link. enteric contrast (radiology procedure) For CT CHESTABD/PEL W IVCON Routine order Administer, As Directed One Time Only, via Oral, Rectal, both Oral and Rectal, Enteric Tube, Stoma or Indwelling Catheter, Enteric Contrast as designated per enteric contrast guidelines No current facility-administered medications for this visit. 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 Abd: soft, thin, normal to slightly hyperactive normal pitch bowel sounds, Mild RUQ, epigastric and Right mid and lower quadrant discomfort to palpation, no obvious masses ASSESSMENT/PLAN: 1. H. pylori infection - ICD9: 041.86, ICD10: A04.8 (primary diagnosis) - H pylori infection was treated and resolved, negative stool H pylori testing. - CT ABD/PEL W IVCON - IV CONTRAST (RADIOLOGY PROCEDURE) - ENTERIC CONTRAST (RADIOLOGY PROCEDURE) - XR UPPER GI W SMALL BOWEL SERIES 2. Epigastric pain - ICD9: 789.06, ICD10: R10.13 - H pylori infection was treated and resolved, negative stool H pylori testing. Diagnosed with gastritis by EGD, treating with PPI as prescribed, Still with abd symptoms, need for CT abd/pelvis, then upper GI with small bowel follow through and then colonoscopy if symptoms not determined for the cause of pain and constipation and appetite changes. - CT ABD/PEL W IVCON - IV CONTRAST (RADIOLOGY PROCEDURE) - ENTERIC CONTRAST (RADIOLOGY PROCEDURE) - XR UPPER GI W SMALL BOWEL SERIES 3. Right lower quadrant abdominal pain - ICD9: 789.03, ICD10: R10.31 - H pylori infection was treated and resolved, negative stool H pylori testing. Diagnosed with gastritis by EGD, treating with PPI as prescribed, Still with abd symptoms, need for CT abd/pelvis, then upper GI with small bowel follow through and then colonoscopy if symptoms not determined for the cause of pain and constipation and appetite changes. - CT ABD/PEL W IVCON - IV CONTRAST (RADIOLOGY PROCEDURE) - ENTERIC CONTRAST (RADIOLOGY PROCEDURE) - XR UPPER GI W SMALL BOWEL SERIES 4. Nausea - ICD9: 787.02, ICD10: R11.0 - H pylori infection was treated and resolved, negative stool H pylori testing. Diagnosed with gastritis by EGD, treating with PPI as prescribed, Still with abd symptoms, need for CT abd/pelvis, then upper GI with small bowel follow through and then colonoscopy if symptoms not determined for the cause of pain and constipation and appetite changes. - CT ABD/PEL W IVCON - IV CONTRAST (RADIOLOGY PROCEDURE) - ENTERIC CONTRAST (RADIOLOGY PROCEDURE) - XR UPPER GI W SMALL BOWEL SERIES 5. Appetite disorder - ICD9: 307.50, ICD10: F50.9 - H pylori infection was treated and resolved, negative stool H pylori testing. Diagnosed with gastritis by EGD, treating with PPI as prescribed, Still with abd symptoms, need for CT abd/pelvis, then upper GI with small bowel follow through and then colonoscopy if symptoms not determined for the cause of pain and constipation and appetite changes. - CT ABD/PEL W IVCON - IV CONTRAST (RADIOLOGY PROCEDURE) - ENTERIC CONTRAST (RADIOLOGY PROCEDURE) - XR UPPER GI W SMALL BOWEL SERIES Pelon Manzano DO Return if no improvement. Follow up with Pelon Manzano DO. Discussed risks, benefits, alternatives, and potential side effects of medications. Patient/Guardian expressed understanding and agreed with the plan. See patient instructions. Pelon Manzano DO [address] [place] [address] Observed: 07/29/2017 Status: F Source: [facility] EIA STOOL 8:00 AM [facility] REPOSITORY Sp. Request/Comment: - Specimen received in sterile container. Test Result - Negative for Helicobacter pylori Antigen by EIA. Performed By: #### HPYLAG #### [facility] [address] [place], [place] [address] PROGRESS Observed: 07/17/2017 Status: COMPLETED Source: [place] 6:02 PM [facility] REPOSITORY HNO ID: [id number] Author: Diego Waite Service: (none) Author Type: Physician Type: Progress Notes Filed: 07/17/2017 6:07 PM Note Text: FOLLOW UP VISIT - ENDOSCOPY NAME: Nabil Cooney [place] [facility] NO.: [id number] DATE OF SERVICE: 07/15/2017 : 1985 REFERRING PHYSICIAN: Pelon Manzano DO Nabil is a patient I am following for epigastric pain. The patient is a 31 year old female referred for upper abdominal complaints. Nabil notes no history of colon complaints. The patient notes the following upper complaints: Nabil notes abdominal pain. The pain occurs in the following locations: epigastric region, RUQ and LUQ, The patient describes the pain as a occasionally severe, but is improving over the past few weeks. The pain has the following character: Colicky . Nabil notes occasional heartburn. Nabil denies dysphagia. Nabil denies a history of ulcers/ peptic ulcer disease. Nabil has not undergone prior endoscopy. She underwent a gallbladder ultrasound which demonstrated some sludge but no other specific abnormalities. She had a blood test which demonstrated an H pylori infection due to H. pylori antibody and IgG antigen. The patient notes that her symptoms generally occur in our or later after eating food. Food does not improve her symptoms. She noted some improvement in her symptoms when started on proton pump inhibitor and antibiotic eradication but not complete resolution of her symptoms. Her symptoms recurred when she stopped taking proton pump inhibitors. After she completed her antibiotic course She underwent a HIDA scan with ejection fraction. This demonstrated a normal ejection fraction did not reproduce her symptoms. Dr Urbina performed upper endoscopy on July 08, 2017. The patient was found to have erythematous gastritis. The patient notes continue complaints since the procedure. She has not taking a proton pump inhibitor VITALS: Blood pressure 120/86, pulse (!) 54, weight 61.2 kg (135 lb). On examination, the abdomen is benign. Assessment IMPRESSION: Gastritis PLAN: I recommend the patient placed on a proton pump inhibitor. I do not feel she has biliary colic. If her symptoms fail to improve, I recommend she follow-up with Dr. Urbina. I spent 30 minutes in the visit, with more than 50% of the total [id number] time of the visit in counseling / coordination of care. Diagnoses: (K83.8) Biliary sludge determined by ultrasound (primary encounter diagnosis) (A04.8) H. pylori infection (R10.13) Epigastric pain Diego Waite MD [place] HEPATOBILIARY W EF Observed: 07/11/2017 Status: F Source: [place] AND/OR RX 9:35 AM [facility] REPOSITORY * * *Final Report* * * DATE OF EXAM: Jul 11 2017 9:35AM [facility] 0021 - [place] HEPATOBILIARY W EF AND/OR RX / PROCEDURE REASON: Right upper quadrant pain * * * * Physician Interpretation * * * * HEPATOBILIARY SCAN WITH POST-CCK GALLBLADDER EJECTION FRACTION: CLINICAL HISTORY: Right upper quadrant abdominal pain. TECHNIQUE: 5.5 mCi Tc-99m Choletec IV.followed by 60 minutes of abdominal imaging 1.3 mcg (CCK) IV, followed by additional 30 minutes of imaging. RESULT: There is prompt and relatively Homogeneous uptake by the liver. Gallbladder activity is visualized by 7 minutes, indicating cystic duct patency. Proximal small bowel activity is noted by 12 minutes, indicating common bile duct patency. After CCK was administered there is satisfactory emptying from the gallbladder with a calculated gallbladder ejection fraction of 61% (normal > 35%). IMPRESSION: 1. Gallbladder is visualized. Patent cystic and common bile ducts. No scintigraphic evidence of acute cholecystitis. 2. Normal gallbladder ejection fraction. Chamfering Machine Operator: PSCAnnita Transcribe Date/Time: Jul 11 2017 10:28A Dictated by : NIMESH SHERIDAN MD This examination was interpreted and the report reviewed and electronically signed by: NIMESH SHERIDAN MD on Jul 11 2017 10:31AM EST [id number] PROGRESS Observed: 07/11/2017 Status: COMPLETED Source: [place] 7:45 AM [facility] REPOSITORY HNO ID: [id number] Author: Alivia Love Service: (none) Author Type: (none) Type: Progress Notes Filed: 07/11/2017 10:00 AM Note Text: RADIOLOGY SERVICE PROGRESS NOTE SERVICE DATE: 07/11/2017 SERVICE TIME: 8:07 AM PATIENT IDENTITY VERIFICATION COMPLETED USING TWO (2) METHODS: Patient confirmed name and Date of verbally. PATIENT GENDER DATA: .female : No ALLERGIES: Reviewed and unchanged MEDICATIONS REVIEWED: Yes PATIENT RELEVANT IMPLANT DATA REVIEWED: Not Applicable CREATININE: No results found for: CREAT, EGFROTH, EGFRAA DIAGNOSTIC CT PERFORMED: No IV SITE: Ambulatory: A peripheral IV was started in the Left antecubital site with a Angio cath: 24 gauge. POST EXAM PIV STATUS: Discontinued PROCEDURE TYPE: NM INJECT: Hepatobiliary with Gallbladder EF. 5.6 mCi Tc99m CHOLETEC. CCK 1.3 micrograms intravenous at 09:00. ADMINISTRATION TIME: 07:55 PATIENT DISCHARGED TO: Ambulatory patient, left OR department area. A Diagnostic radioactive procedure has taken place, with no further precautions necessary other than routine body substance precautions. More information regarding radiation safety can be found using this link: [email or web address] SIGNATURE: Alivia Love PATIENT NAME: Nabil Ceron DATE: July 11, 2017 TIME: 8:07 AM PAGER/CONTACT #: NURSING PROG Observed: 07/08/2017 Status: COMPLETED Source: [place] 6:43 PM [facility] REPOSITORY HNO ID: [id number] Author: Lay Sierra RN Service: (none) Author Type: Registered Nurse Type: Nursing Progress Note Filed: 07/08/2017 6:49 PM Note Text: Patient did not experience a fall prior to discharge. Patient did not experience a burn prior to discharge. Lay Sierra RN PT ED Observed: 07/08/2017 Status: COMPLETED Source: [place] 6:41 PM [facility] REPOSITORY HNO ID: [id number] Author: Lay Sierra RN Service: (none) Author Type: Registered Nurse Type: Patient Education Filed: 07/08/2017 6:41 PM Note Text: POST OP LEARNING RESPONSE INSTRUCTION PROVIDED TO: Patient METHOD OF INSTRUCTION: Individual instruction Written instruction - handouts Verbal instruction PATIENT / FAMILY RESPONSE: Information received as demonstrated by interest and questions FOLLOW-UP PLAN: Follow up phone call. Contact information given. SUPPLEMENTAL MATERIAL: Procedure discharge instructions REFERRAL (RECOMMENDATION): None Electronically Signed By: Lay Sierra RN In Department: AMBULATORY SURGERY NURSING PROG Observed: 07/08/2017 Status: COMPLETED Source: [place] 6:06 PM [facility] REPOSITORY HNO ID: [id number] Author: Mariya Barrett RN Service: (none) Author Type: Registered Nurse Type: Nursing Progress Note Filed: 07/08/2017 6:06 PM Note Text: SBAR to SMITH Mathews Dr. talking to via telephone about results of EGD. Mariya Barrett RN NURSING PROG Observed: 07/08/2017 Status: COMPLETED Source: [place] 5:55 PM [facility] REPOSITORY HNO ID: [id number] Author: Mariya Barrett RN Service: (none) Author Type: Registered Nurse Type: Nursing Progress Note Filed: 07/08/2017 6:03 PM Note Text: Patient arrived to PACU, on left side, abdomen soft. Denies pain. Patient resting comfortably. Mariya Barrett RN NURSING PROG Observed: 07/08/2017 Status: COMPLETED Source: [place] 5:54 PM [facility] REPOSITORY HNO ID: [id number] Author: Ирина Grimm RN Service: Nursing Author Type: Registered Nurse Type: Nursing Progress Note Filed: 07/08/2017 5:55 PM Note Text: Patient did not experience a fall within the Intraoperative area. Patient did not experience a burn within the Intraoperative area. Ирина Grimm RN NURSING PROG Observed: 07/08/2017 Status: COMPLETED Source: [place] 5:40 PM [facility] REPOSITORY HNO ID: [id number] Author: Lay Sierra RN Service: (none) Author Type: Registered Nurse Type: Nursing Progress Note Filed: 07/08/2017 5:51 PM Note Text: [facility] PRE-OP NURSING HAND OFF NOTE SBAR Hand off given to Lashanda Vides RN. Hand off was communicated verbally and at the patient's bedside and all questions were answered. FALLS/CRENSHAW Patient did not experience a fall within the Preoperative area. Patient did not experience a burn within the Preoperative area. Lay Sierra RN PT ED Observed: 07/08/2017 Status: COMPLETED Source: [place] 5:23 PM [facility] REPOSITORY HNO ID: [id number] Author: Lay Contreras) SMITH Sierra Service: (none) Author Type: Registered Nurse Type: Patient Education Filed: 07/08/2017 5:24 PM Note Text: Discharge Instructions were reviewed pre-operatively with the patient. All questions and concerns were addressed. Lay Sierra RN PRE OP LEARNING ASSESSMENT PROCEDURE/SURGERY: GI PROCEDURES: EGD READINESS TO LEARN COGNITIVE ABILITY: Alert and oriented MOTIVATION TO LEARN: Interested FAMILY SUPPORT: Unable to assess - Family not present PATIENT LEARNS BEST BY: Multiple Methods FACTORS AFFECTING LEARNING: None PHYSICAL LIMITATIONS AFFECTING LEARNING: None Electronically Signed By: Lay Sierra RN In Department: AMBULATORY SURGERY HISTORY PHYSICAL Observed: 07/08/2017 Status: COMPLETED Source: [place] 5:14 PM [facility] REPOSITORY HNO ID: [id number] Author: Ben Urbina Service: Gastroenterology Author Type: Physician Type: HANDP Filed: 07/08/2017 5:15 PM Note Text: PROCEDURAL SEDATION HISTORY AND PHYSICAL EXAM SERVICE DATE: 07/08/2017 SERVICE TIME: 5:14 PM Subjective HPI: This is a 31 year old female who presents with epigastric distress PAST ANESTHESIA HISTORY: No history of adverse event PAST MEDICAL HISTORY Diagnosis Date - NEGATIVE MEDICAL HISTORY PAST SURGICAL HISTORY Procedure Laterality Date - BUNIONECTOMY, LAPIDUS-TYPE 02/16/03 bilateral Prior to Admission medications as of 07/08/17 1700 Medication Sig Last Dose Taking sucralfate (CARAFATE) 1 gram tablet Take 1 tablet by mouth four times daily. For abdominal pain Unknown at Unknown time ALLERGIES No Known Allergies Objective PHYSICAL EXAM: The remainder of the physical exam is noncontributory. AIRWAY: Airway Visualization of Uvula: Yes Mouth opening greater than 2 fingerbreadths: Yes Neck Full Range of Motion: Yes LUNGS: Lungs clear to auscultation, Good diaphragmatic excursion CARDIAC: Normal S1 and S2; no rubs, murmurs, or gallops Assessment/Plan ASA Class: ASA Class:: Patient with mild systemic disease Active Problems: * No active hospital problems. * Resolved Problems: * No resolved hospital problems. * Provisional Diagnosis/Treatment Plan: Epigastric distress/EGD SEDATION GOAL: Moderate SIGNATURE: Ben Urbina MD PATIENT NAME: Nabil Ceron DATE: July 08, 2017 TIME: 5:14 PM PAGER: SURGICAL PATHOLOGY Observed: 07/08/2017 Status: F Source: [place] 12:00 AM [facility] REPOSITORY Specimen originated from [facility] Specimen #: [id number] Submitting Physician: BEN URBINA MD FINAL DIAGNOSIS Stomach, antrum, biopsy - Gastric antral-type mucosa with mild reactive gastropathy. ENE/santana/07/11/17 COMMENT No Helicobacter pylori organisms are identified. Roby Chow M.D. (Electronic Signature) SPECIMEN SUBMITTED A: ANTRUM, BIOPSY CLINICAL DATA DISTRESS, EPIGASTRIC [R10.13] H&H GROSS DESCRIPTION A. Received in formalin is one piece of mccoy, soft tissue measuring 0.6 x 0.3 x 0.2 cm. Totally submitted in one cassette. Gross examination performed at [facility], [address] [place] [address] 07/09/2017 11:04:27 PM Date of Report: 07/11/2017 Date of Procedure: 07/08/2017 Date of Receipt: 07/09/2017 Submitted by: BEN URBINA MD Location: [facility] Diagnostic interpretation performed at [facility], [address] [place] [address]. ALLERGIES ALLERGIES DATE TYPE / CODE NAME / CODE REACTION SEVERITY SOURCE 06/06/2017 Drug No Known Unknown [facility] Allergy/416 Allergies/S47298 Hospital 340244(SNOM 0388(RXNORM) Repository ED CT) Drug NO KNOWN [facility] Class/64291 ALLERGIES [place] 1003(SNOMED Repository CT) ENCOUNTERS ENCOUNTERS ADMIT/DISCHARGE ACCOUNT ADMITTING ENCOUNTER LOCATION SOURCE NUMBER CLASS 06/27/2018/06/30/19 [id number] Ambulatory [address] [place] Repository 06/25/2018 [id number] [facility] ing:NM Repository 06/18/2018/06/18/19 [id number] Ambulatory [address] [place] Repository 06/18/2018/06/19/19 [id number] Ambulatory [address] [place] Repository 10/24/2017/10/25/19 [id number] Ambulatory [address] Repository 10/24/2017/10/25/19 [id number] Ambulatory [address] Repository 09/18/2017 [id number] [facility] ing:MTLAB Repository 08/09/2017 [id number] [facility] ing:RAD Repository 08/02/2017/08/02/19 [id number] Ambulatory [address] [place] Repository 08/02/2017/08/02/19 [id number] Ambulatory [address] [place] Repository 07/31/2017/08/01/19 [id number] Ambulatory [address] [place] Repository 07/15/2017/07/15/19 [id number] Ambulatory [address] [place] Repository 07/11/2017/07/11/19 [id number] Ambulatory [address] [place] Repository 07/08/2017/07/08/[id number] Repository PAYERS PAYERS ENCOUNTER GUARANTOR PAYER SUBSCRIBER SOURCE 06/25/2018 NABIL LUCEROOB: Bharati [id number] S Insurance:[facility] [id number] [place] [id number] Repository [address]Vvk: ([phone]) Date:[id number] [phone] () [id number], [place] [address]AX: 06/25/2018 Secondary NOT GIVENUNK Bharati Insurance:SELF PAY [facility]: Effective Repository Date:2018-06-18 09/18/2017 NABIL Cooney Primary Luis LearyDOB: [place] [id number] S Insurance:CIGNAPolicy [id number] [facility] SMYSER Number: [place], [place] [id number] Repository [address]Hpe: ([phone]) Date:[id number] [phone] () [id number], [place] [address]TX: 09/18/2017 Secondary NOT GIVENUNK Bharati Insurance:SELF PAY Community [facility]: Effective Repository Date:2017-09-18 08/09/2017 NABIL Cooney Primary Luis LearyDOB: [place] [id number] S Insurance:Videon CentralNAPolviVoody [id number] [facility] SMYSER Number: [place], [place] [id number] Repository [address]Fhz: ([phone]) Date:[id number] [phone] () [id number], [place] [address]JZ: 08/09/2017 Secondary NOT GIVENUNK [place] Insurance:SELF PAY Community [facility] Number: Effective Repository Date:2017-07-31
== END ==
PROVIDERS: Family Provider Student in an Organized Health Care Education/Training Program; PCP Student in an Organized Health Care Education/Training Program; Referring Provider Student in an Organized Health Care Education/Training Program; Visit Provider Student in an Organized Health Care Education/Training Program
DX: R68.81 Early satiety (principal); R11.0 Nausea; R10.84 Generalized abdominal pain; R14.0 Abdominal distension (gaseous)
CPT/HCPCS: 78264; A9541

== ENCOUNTER 2020-09-14 08:57 | Outpatient (RCR) | payer OTHER, SELFPAY ==
[2017-06-06 04:27] VITALS: BMI 22.1
== END 2020-11-15 23:59 ==
LOC: IMMUN 08:57
PROVIDERS: PCP Student in an Organized Health Care Education/Training Program; Visit Provider Family Medicine
DX: Z23 Encounter for immunization (principal)
CPT/HCPCS: 0001A; 0002A; 91300

== ENCOUNTER → 2021-11-08 | Outpatient (CLI) | payer BC, SELFPAY ==
[2021-11-13 15:35] LABS: HPV APTIMA, High Risk Negative (Negative)
== END | disposition home or self-care (01) ==
LOC: LABSPEC 16:24
PROVIDERS: PCP Student in an Organized Health Care Education/Training Program; Visit Provider Nurse Practitioner Women's Health
DX: Z12.4 Encounter for screening for malignant neoplasm of cervix (principal)
CPT/HCPCS: 87624; 88175; G0145